=== PATIENT | female | born 1985 | race Caucasian/White ===

== ENCOUNTER 2019-01-12 09:58 | Emergency (ER) | payer BC ==
[2019-01-12 10:07] VITALS: BP 159/90
--- NOTE | 2019-01-12 10:17 | EDPHY ---
H & P Stated Complaint: BURNING IN CHEST Time Seen by Provider: 01/12/19 10:08 HPI/ROS: HPI: This is a 33-year-old female who presents with Chief Complaint: Dyspnea, midsternal burning chest pain Location: Chest Quality: Shortness of breath, burning midsternal chest pain Duration: Several months Signs and Symptoms: no shortness of breath at rest, no shortness of breath on exertion, no cough, + chest pain, no palpitations, no lower extremity edema, no wheezing, no orthopnea, no paroxysmal nocturnal dyspnea, no fever, no injury/ trauma, no hemoptysis, no carpal pedal spasms, no rash Timing: Waxes and wane Severity: [id number] Context: Patient is originally from [place], visiting [place] to see if she wants to move here, presents with several month history of a feeling of she has not been able to "get a deep breath" accompanied by intermittent episodes of midsternal burning chest pain that is nonradiating in nature. The chest discomfort occurs 2-3 times per week and lasts approximately 15-30 minutes. Patient has no prior history of reflux disease. Discomfort not related to foods , drink. Patient does have a history has med but does not regularly use her inhaler. She had blood work in October that evaluated and ruled out anemia, electrolyte imbalance, infection. She denies any upper respiratory infection. Patient has no lower extremity edema, calf pain. She is requesting today chest x-ray, EKG. We did discuss the possibility of a D-dimer and she was open to a blood test to test for only this. LMP 2 weeks ago. Patient is flying back to [place] this evening. Discomfort is not positional. Patient reports that she has been under considerable stress and has felt depressed. She is looking to moved to the area for lifestyle changes and stress reduction. No family cardiac history. Modifying Factors: Holistic measures with transient improvement Comment: ROS: A comprehensive 10 system review of systems is otherwise negative aside from elements mentioned in the history of present illness. MEDICAL/SURGICAL/SOCIAL HISTORY: Medical history: Asthma, estrogen dominance, inflammatory bowel syndrome Surgical history: Denies Social history: Employed. Nonsmoker. CONSTITUTIONAL: Extremely well-appearing, polite and cooperative, adult white female, awake and alert, no obvious distress HEENT: Atraumatic and normocephalic, PERRL, EOMI. Nares patent; no rhinorrhea; no nasal mucosal edema. Tympanic membranes clear. Oropharynx clear, no exudate and moist pink mucosa. Airway patent. No lymphadenopathy. No meningismus. Cardiovascular: Normal S1/S2, regular rate, regular rhythm, without murmur rub or gallop. PULMONARY/CHEST: Symmetrical and mild reproducible left mid sternal and generalized anterior tenderness. Clear to auscultation bilaterally. Good air movement. No accessory muscle usage. ABDOMEN: Soft, nondistended, nontender, no rebound, no guarding, no peritoneal signs, no masses or organomegaly. No CVAT. EXTREMITIES: 2/2 pulses, strength 5/5, no deformities, no clubbing, no cyanosis or edema. NEUROLOGICAL: no focal neuro deficits. GCS 15. SKIN: Warm and dry, no erythema. no rash. Good capillary refill. Source: Patient Exam Limitations: No limitations - Personal History Current Tetanus/Diphtheria Vaccine: Yes - Medical/Surgical History Hx Asthma: Yes Hx Chronic Respiratory Disease: No Hx Diabetes: No Hx Cardiac Disease: No Hx Renal Disease: No Hx Cirrhosis: No Hx Alcoholism: No Hx HIV/AIDS: No Hx Splenectomy or Spleen Trauma: No - Social History Smoking Status: Never smoked Constitutional: Initial Vital Signs Temperature (C) 36.8 C 01/12/19 10:06 Heart Rate 88 01/12/19 10:06 Respiratory Rate 16 01/12/19 10:06 Blood Pressure 159/90 H 01/12/19 10:06 O2 Sat (%) 98 01/12/19 10:06 O2 Delivery Mode Room Air Allergies/Adverse Reactions: azithromycin Allergy (Verified 01/12/19 10:06) Home Medications: Medication Instructions Recorded NK [No Known Home Meds] 01/12/19 Medical Decision Making - Diagnostics EKG Interpretation: 12 lead EKG: Indication: Shortness of breath Rhythm: Normal sinus rhythm [place]: Normal Intervals: Normal QRS: Normal ST segments: Normal INTERPRETATION: No acute ischemic changes The 12 lead EKG was interpreted by myself. Imaging Results: Imaging Impressions Chest X-Ray 01/12/19 10:17 Impression: Clear lungs. No acute process. ED Course/Re-evaluation: Vital signs reviewed and stable upon arrival. No hypoxia respiratory distress. Lung exam is completely benign. EKG, chest x-ray, D-dimer and serum test ordered EKG my read shows normal sinus rhythm with a rate of 92 beats per minute, no acute ischemic changes, no arrhythmias, no heart block, no signs of pericarditis. D-dimer is unremarkable. Chest x-ray my read via PAC shows no opacity, no effusion, no pneumothorax, no widened mediastinum Suspect this may be costochondritis versus anxiety/stress related. No Signs of asthma exacerbation. This patient was seen under the supervision of my secondary supervising physician. I evaluated care for this patient with attending. Differential Diagnosis: Shortness of breath including but not limited to pulmonary infectious process, COPD, asthma, pulmonary embolus and congestive heart failure. - Data Points Laboratory Results: 01/12/19 01/12/19 10:25 10:25 D-Dimer 0.39 ug/mLFEU ug/mLFEU (0.00-0.50) Beta HCG, Qual NEGATIVE Departure - Departure Disposition: Home, Routine, Self-Care Clinical Impression: Costochondral chest pain Dyspnea Qualifiers: Dyspnea type: unspecified Qualified Code(s): R06.00 - Dyspnea, unspecified Condition: Good Instructions: Costochondritis (ED), Dyspnea (ED) Additional Instructions: Use albuterol every 4-6 hours as needed for shortness of breath, wheezing. Take Tylenol 650 mg every 4 hours and/or Ibuprofen 600 mg every 8 hours with food as needed for pain. Practice slow breathing, relaxation, body balancing and meditation techniques. Use CBD oral as needed for discomfort. Follow-up with primary care provider and consider candidacy for pulmonology evaluation for lung function test. Referrals: [facility] [Other] - As per Instructions
--- NOTE | 2019-01-12 11:17 | CPEKG ---
Test Reason : OPEN Blood Pressure : / mmHG Vent. Rate : 092 BPM Atrial Rate : 093 BPM P-R Int : 156 ms QRS Dur : 081 ms QT Int : 348 ms P-R-T Axes : 076 038 053 degrees QTc Int : 431 ms Sinus rhythm Confirmed by Siva Pompa ([id number]) on 01/12/2019 11:16:52 AM Referred By: SIVA POMPA Confirmed By:Siva Pompa
== END 2019-01-12 11:00 | disposition home or self-care (01) ==
DX: R07.1 Chest pain on breathing (principal); R06.00 Dyspnea, unspecified